=== PATIENT | female | born 1940 | race Two or more races ===

== ENCOUNTER 2018-06-02 20:01 | Emergency (ER) | payer MEDICARE ==
[~2018-06-02] VITALS: Ht 149.9 cm; Wt 43.1 kg
[2018-06-02 20:22] VITALS: BP 123/65
--- NOTE | 2018-06-02 21:45 | NUR ---
CALLED PT'S NAME THREE TIMES, NO RESPONSE, WILL TRY AGAIN AT A LATER TIME
--- NOTE | 2018-06-02 22:06 | NUR ---
CALLED PT'S NAME THREE TIMES, NO RESPONSE, WILL TRY AGAIN AT A LATER TIME
== END 2018-06-02 22:07 | disposition left against medical advice (07) ==
LOC: ER 20:06
DX: Z53.21 Procedure and treatment not carried out due to patient leaving prior to being seen by health care provider (principal)

== ENCOUNTER 2022-05-25 14:18 | Emergency (ER) | payer MEDICARE, OTHER ==
[~2022-05-25] VITALS: Ht 149.9 cm; Wt 44.0 kg
[2022-05-25 15:06] VITALS: BP 164/62
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
--- NOTE | 2022-05-25 16:51 | NUR ---
seen and examined by dr kaminski. verbally discharged.
== END 2022-05-25 16:52 | disposition home or self-care (01) ==
LOC: ER 14:18
DX: M25.561 Pain in right knee (principal)

== ENCOUNTER 2022-06-08 14:01 | Emergency (ER) | payer OTHER ==
[~2022-06-08] VITALS: Ht 149.9 cm; Wt 44.5 kg
[2022-06-08 14:14] VITALS: BP 150/78
--- NOTE | 2022-06-08 14:15 | NUR ---
RECEIVED PT 82 YRS FEMALE CAME FROM HOME FOR UNABLE TO TACKER HERE SELF AND ANXIETY
--- NOTE | 2022-06-08 14:45 | NUR ---
UA SENT TO LAB
--- NOTE | 2022-06-08 15:03 | NUR ---
BLOOD DROW BY LAB TACH
[2022-06-08 15:17] LABS: BASOPHILS # (AUTO) 0.1 K/uL (0.0-0.2); BASOPHILS % (AUTO) 1.2 % (0.0-2.0); EOSINOPHILS % (AUTO) 1.1 % (0.0-6.0); HEMATOCRIT 34 % (33-45); HEMOGLOBIN 11.4 g/dL (11.5-14.8); LYMPHOCYTES # (AUTO) 0.8 K/uL (0.8-4.8); LYMPHOCYTES % (AUTO) 12.9 % (20.0-44.0); MEAN CORPUSCULAR HGB CONC 33 g/dl (31.0-36.0); MEAN CORPUSCULAR VOLUME 86 fL (82-100); MONOCYTES # (AUTO) 0.5 K/uL (0.1-1.30); MONOCYTES % (AUTO) 8.6 % (2.0-12.0); NEUTROPHILS # (AUTO) 4.5 K/uL (1.8-8.9); NEUTROPHILS % (AUTO) 76.2 % (43.0-81.0); PLATELET COUNT (AUTO) 222 K/uL (150-450); RED BLOOD CELL COUNT(AUTO) 4.01 MIL/uL (4.0-5.2); WHITE BLOOD COUNT (AUTO) 5.9 K/uL (4.3-11.0)
[2022-06-08 15:47] LABS: CALCIUM, SERUM 8.7 mg/dL (8.5-10.1); CARBON DIOXIDE 29 mmol/L (21-32); CHLORIDE 104 mmol/L (98-107); CREATININE 0.8 mg/dL (0.6-1.3); GLUCOSE 109 mg/dL (74-106); POTASSIUM 4.1 mmol/L (3.5-5.1); SODIUM SERUM 136 mmol/L (136-145); UREA NITROGEN, BLOOD 18 mg/dL (7-18)
[2022-06-08 15:53] LABS: ALANINE AMINOTRANSFERASE 19 U/L (12-78); ALBUMIN 3.3 g/dL (3.4-5.0); ALCOHOL, BLOOD < 3 mg/dL (0-0); ALKALINE PHOSPHATASE 89 U/L (46-116); ASPARTATE AMINOTRANSFERASE 23 U/L (15-37); BILIRUBIN,DIRECT 0.1 mg/dL (0.0-0.2); BILIRUBIN,TOTAL 0.3 mg/dL (0.2-1.0); TOTAL PROTEIN, SERUM 7.2 g/dL (6.4-8.2)
[2022-06-08 15:54] LABS: ACETAMINOPHEN 0 ug/ml (10-30)
[2022-06-08 17:04] LABS: BILIRUBIN,URINE Negative (NEGATIVE); COLOR,URINE YELLOW (YELLOW); LEUKOCYTE ESTERASE ,URINE Trace (NEGATIVE); NITRITE, URINE Negative (NEGATIVE); PH,URINE 7.5 (5.0-8.0); PROTEIN,URINE Negative (NEGATIVE); UGLUCOSE Negative (NEGATIVE); UROBILINOGEN,URINE 0.2 EU/dL (0.2)
--- NOTE | 2022-06-08 17:17 | NUR ---
TERESA Boo AT BED SIDE FOR PSCHY EVALUATION
--- NOTE | 2022-06-08 18:00 | NUR ---
TERESA DISPATCHER BUS AND TROLLEY BACK AND SAY PLACE PT ON 3598 FOR UNBLE TO TACKER HERE SELF PT WAS NOT IN [place]
--- NOTE | 2022-06-08 18:15 | NUR ---
CAME BACK AT 181 NOT AT 1800
--- NOTE | 2022-06-08 18:15 | NUR ---
Patient eloped from facility. ER MD notified.
--- NOTE | 2022-06-08 18:32 | NUR ---
CALLED [employer] NON EMERGENT LINE AND WAS NOTIFIED TRACTOR TRAILER MOVING VAN DRIVER 550 GAVE PT DESCRIPTION AWAITING FOR OFFICERS TO ARRIVE
[2022-06-08 18:37] LABS: BACTERIA,URINE None seen /HPF (None Seen); RBC,URINE 0-2 /HPF (0-2); WBC,URINE 0-2 /HPF (0-3)
== END 2022-06-08 18:50 | disposition left against medical advice (07) ==
LOC: ER 14:03
DX: F29 Unspecified psychosis not due to a substance or known physiological condition (principal); Z20.822 Contact with and (suspected) exposure to COVID-19
CPT/HCPCS: 99282; 85025; 80048; 80076; 81001; 36415; 87426; 80143; 80320; 80307; C9803; G0480

== ENCOUNTER 2022-06-08 20:00 | Inpatient (IN) | payer OTHER ==
[~2022-06-08] VITALS: Ht 149.9 cm; Wt 27.7 kg
--- NOTE | 2022-06-08 21:15 | NUR ---
[phone] KRIS Son's number
--- NOTE | 2022-06-09 07:35 | NUR ---
BED ASSIGNMENT CHANGED TO 219-A. ADMITTING INFORMED.
--- NOTE | 2022-06-09 07:51 | NUR ---
REPORT GIVEN TO TAMERA RICH
[2022-06-09 08:00] VITALS: BP 159/79
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
--- NOTE | 2022-06-09 08:10 | NUR ---
PATIENT TRANSFERRED TO 219, ALL CARE ENDORSED TO TAMERA RICH
[2022-06-09] MEDS ORDERED: MAG HYDROX/AL HYDROX/SIMETH 30 ML UDC PO PRN (09:00)
[2022-06-09] MEDS ORDERED: MAGNESIUM HYDROXIDE 30 ML UDC PO PRN (09:00)
[2022-06-09] MEDS ORDERED: BLOOD SUGAR DIAGNOSTIC 1 EACH STRIP IN ONE (09:00)
[2022-06-09] MEDS ORDERED: LORAZEPAM 0.5 MG TABLET PO PRN (09:00)
[2022-06-09] MEDS ORDERED: ZOLPIDEM TARTRATE 5 MG TABLET PO PRN (09:00)
[2022-06-09] MEDS ORDERED: ACETAMINOPHEN 325 MG TABLET PO PRN (09:00)
[2022-06-09] MEDS: risperiDONE 0.25 MG TABLET PO SCH ×2 (10:00→17:57)
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
--- NOTE | 2022-06-09 11:43 | NUR ---
BRENNAN Initial Discharge Plan: Patient will return back home [place] at [address], [place] [address]; ([phone]). Patient lives in the same complexas her son Bandar ([phone]) who is involved in patient's care. BRENNAN contacted pt's son Bandar ([phone]) and discussed treatment anddischarge plan. BRENNAN will will coordinate with the pt, family, and MD to help coordinate appropriate discharge. Addendum: 06/12/22 at 0836 by BRENNAN GARRETT felisa Cobos
[2022-06-09 13:35] LABS: THYROID STIMULATING HORMONE 0.707 uIU/mL (0.358-3.74)
[2022-06-09 14:34] VITALS: BP 159/79
--- NOTE | 2022-06-09 14:46 | NUR ---
Social Work Note/Substance Abuse Intervention: Patient was provided with a brief substance abuse intervention and referred to [facility] ([phone]), [facility] ([phone]), and [facility] ([phone]). 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
[2022-06-09 16:00] VITALS: BP 162/75
[2022-06-09 20:15] VITALS: BP 152/91
[2022-06-10 07:28] LABS: ALANINE AMINOTRANSFERASE 17 U/L (12-78); ALBUMIN 3.3 g/dL (3.4-5.0); ALKALINE PHOSPHATASE 90 U/L (46-116); ASPARTATE AMINOTRANSFERASE 20 U/L (15-37); BILIRUBIN,TOTAL 0.3 mg/dL (0.2-1.0); CARBON DIOXIDE 25 mmol/L (21-32); CHLORIDE 104 mmol/L (98-107); CREATININE 0.8 mg/dL (0.6-1.3); GLUCOSE 105 mg/dL (74-106); POTASSIUM 4.5 mmol/L (3.5-5.1); SODIUM SERUM 136 mmol/L (136-145); TOTAL PROTEIN, SERUM 7.1 g/dL (6.4-8.2); UREA NITROGEN, BLOOD 29 mg/dL (7-18)
[2022-06-10 07:31] LABS: CHOLESTEROL 240 mg/dL (<200); HDL CHOLESTEROL 86 mg/dL (40-60); LDL 146 mg/dL (0-99); TRIGLYCERIDES 72 mg/dL (30-150)
[2022-06-10 08:00] VITALS: BP 149/63
[2022-06-10 08:14] LABS: CREATININE 0.8 mg/dL (0.6-1.3)
--- NOTE | 2022-06-10 08:43 | NUR ---
UR NOTE: Auth #[id number] Lizeth OLEARY P:[phone] F:[phone] BRENNAN faxed clinicals and requested auth days.
[2022-06-10] MEDS: risperiDONE 0.25 MG TABLET PO SCH ×2 (08:52→17:26)
[2022-06-10] MEDS: ENSURE ENLIVE 237 ML LIQUID (VANILLA) PO SCH ×2 (12:24→17:26)
--- NOTE | 2022-06-10 13:09 | NUR ---
UR NOTE: Auth #[id number] Lizeth OLEARY P:[phone] F:[phone] SW spoke with Lizeth OLEARY ([phone]) who stated pt is authorized until 06/11, but require clinicals daily to be faxed.
[2022-06-10 16:00] VITALS: BP 135/72
[2022-06-10] MEDS ORDERED: METFORMIN 500 MG TABLET PO SCH (17:00)
[2022-06-10] MEDS: CYANOCOBALAMIN 500 MCG TABLET PO SCH (17:26)
[2022-06-10 20:20] VITALS: BP 148/69
[2022-06-10] MEDS: ATORVASTATIN 10 MG TABLET PO SCH (21:14)
[2022-06-11 08:00] VITALS: BP 154/80
[2022-06-11] MEDS: CYANOCOBALAMIN 500 MCG TABLET PO SCH (08:17)
[2022-06-11] MEDS: risperiDONE 0.25 MG TABLET PO SCH ×2 (08:17→16:30)
[2022-06-11] MEDS: ENSURE ENLIVE 237 ML LIQUID (VANILLA) PO SCH ×3 (08:18→16:31)
[2022-06-11] MEDS ORDERED: LISINOPRIL (10MG) 10 MG TABLET PO SCH (09:00)
[2022-06-11] MEDS: LISINOPRIL (10MG) 10 MG TABLET PO SCH (09:00)
--- NOTE | 2022-06-11 09:07 | NUR ---
RN-NOTES PRINIVIL 20MG P.O NOT GIVEN DUE TO PRINIVIL 10MG P.O WAS GIVEN AT 0818.
--- NOTE | 2022-06-11 10:48 | NUR ---
UR NOTE: Auth #[id number] Lizeth OLEARY P:[phone] F:[phone] BRENNAN spoke with Lizeth OLEARY ([phone]) who stated pt is authorized until 06/11. BRENNAN faxed updated clinicals.
[2022-06-11 16:00] VITALS: BP 136/69
[2022-06-11] MEDS: LINAGLIPTIN 5 MG TABLET PO SCH (16:30)
--- NOTE | 2022-06-11 17:58 | NUR ---
RN-NOTES PATIENT IS VISIBLE IN THE UNIT,GUARDED A/OX3 NOTED WITH DEPRESSED MOOD BUT DENIES SI/HI .ENCOURAGED TO VERBALIZE FEELINGS AND CONCERN TO THE STAFF AND ATTEND GROUPS. PATIENT VERBALIZED UNDERSTANDING ATTENDED GROUP. COMPLIANT WITH MEDICATIONS.AMBULATORY STEADY GAIT. ALL NEEDS ATTENDED AND ANTICIPATED. WILL CONT. MONITORING FOR SAFETY AND BEHAVIOR.WILL ENDORSE TO INCOMING NURSE FOR THE CONTINUITY OF CARE.
--- NOTE | 2022-06-11 18:38 | NUR ---
RN-NOTES PATIENT'S SON ALYCE CAME AND TOOK HOME I BAG OF BIRDS FOOD AND SOME EMPTY BOTTLES HOME.
--- NOTE | 2022-06-11 19:28 | NUR ---
RN NOTES :RECEIVED PATIENT SITTING IN ACTIVITY ROOM WATCHING TV, A/OX2. NO S/SX OF ACUTE DISTRESS NOTED. PATIENT IS ANXIOUS, EASILY AGITATED, PARANOID , HYPERVERBAL GUARDED,NEEDS FREQUENTLY REDIRECTIONS ,ENCOURAGED TO VERBALIZED ANY FEELING OR CONCERN ,SAFETY PRECAUTIONS MAINTAINED. WILL CONTINUE TO MONITOR Q15MIN ROUNDS FOR SAFETY.
[2022-06-11 20:00] VITALS: BP 119/67
[2022-06-11] MEDS: ATORVASTATIN 10 MG TABLET PO SCH (22:02)
[2022-06-12 07:15] LABS: CALCIUM, SERUM 8.5 mg/dL (8.5-10.1); CREATININE 0.7 mg/dL (0.6-1.3); POTASSIUM 4.4 mmol/L (3.5-5.1)
[2022-06-12 08:00] VITALS: BP 150/70
[2022-06-12] MEDS: LISINOPRIL (10MG) 10 MG TABLET PO SCH (08:36)
[2022-06-12] MEDS: CYANOCOBALAMIN 500 MCG TABLET PO SCH (08:36)
[2022-06-12] MEDS: risperiDONE 0.25 MG TABLET PO SCH ×2 (08:36→16:12)
[2022-06-12] MEDS: LINAGLIPTIN 5 MG TABLET PO SCH (08:36)
--- NOTE | 2022-06-12 08:36 | NUR ---
BRENNAN Family Contact: BRENNAN contacted pt's son Papito ([phone]) requesting to speak to this senior underwriter. BRENNAN left a voicemail.
[2022-06-12] MEDS: ENSURE ENLIVE 237 ML LIQUID (VANILLA) PO SCH ×3 (08:37→17:14)
--- NOTE | 2022-06-12 08:42 | NUR ---
BRENNAN Family Contact: BRENNAN contacted pt's son Papito ([phone]) and updated on pt's status.
--- NOTE | 2022-06-12 09:23 | NUR ---
BRENNAN FAMILY CONTACT: BRENNAN CONTACTED PT'S SON VY ([phone]) AND NOTIFIED THAT PT DOES NOT ALLOW SON TO SPEAK TO DOCTOR. HE WAS UNDERSTANDING OF THIS.
--- NOTE | 2022-06-12 09:23 | NUR ---
SW NOTE: DR. WALLACE AND THIS TRANSCRIBING MACHINE MECHANIC ASKED PT IF SHE ALLOWS SON TO SPEAK TO THE DOCTOR AND PT STATED "NO".
--- NOTE | 2022-06-12 10:10 | NUR ---
RN Notes: Received pt. awake in her room, hyperverbal and no distress and no agitation noted. Ate 100% breakfast and compliant on meds. Encouraged to verbalize feelings and motivated to attend group activity. Needs attended and will continue to monitor for safety.
--- NOTE | 2022-06-12 10:55 | NUR ---
UR NOTE: Auth #[id number] Lizeth OLEARY P:[phone] F:[phone] BRENNAN spoke with Lizeth OLEARY ([phone]) who stated pt is authorized until 06/12. BRENNAN faxed updated clinicals. Lizeth stated that during the weekend clinicals are not required.
[2022-06-12 16:00] VITALS: BP 126/66
--- NOTE | 2022-06-12 20:33 | NUR ---
RN OPENING NOTES RECEIVED PATIENT IN BED,AWAKE AND COHERENT. A/O X 3 COOPERATIVE WITH CARE AND TREATMENT. NICE AND POLITE TOWARDS THE STAFF. SHE WANTS TO WEAR HER OUTSIDE CLOTHES INSTEAD OF HOSPITAL GOWN. WITH EPISODES OF PARANOIA NOTED. NO PAIN OR DISCOMFORT AT THIS TIME. NO SOB OR DISTRESS. PATIENT AMBULATES WITH STEADY GAIT. ENCOURAGE TO VERBALIZE CONCERNS AND NEEDS.SAFETY PRECAUTIONS MAINTAINED, KEPT BED ON LOWER LOCKED POSITION. WILL CONTINUE TO MONITOR FOR NANY.
--- NOTE | 2022-06-12 20:49 | NUR ---
GPS RN NOTE, RECEIVED PATIENT AWAKE AND IN BED, NO S/S OR COMPLAINTS OF PAIN AT THIS TIME. PATIENT IS DISPLAYING NO S/S OF APPARENT DISTRESS AT THIS TIME. PATIENT BREATHING IS UNLABORED WITH EQUAL RISE AND FALL OF THE CHEST. PATIENT IS ALERT AND ORIENTED X 3 ON ROOM AIR WITH A SPO2 95%. PATIENT IS COMPLIANT WITH MEDICATIONS, DEMANDING, CONFUSED AT TIMES, MAKES NEEDS KNOWN, AND COOPERATIVE. PATIENT DENIES SUICIDAL AND HOMICIDAL IDEATIONS AT THIS TIME. PATIENT ASSISTED WITH TURNING AND REPOSITIONING Q2HR AND PRN FOR COMFORT AND CIRCULATION. PATIENT HAS NO NEEDS AT THIS TIME. PATIENT EDUCATED ON THE USE OF THE CALL PRUITT. PATIENT BED SIDE RAILS UP X 2 FOR SAFETY. PATIENT BED IS LOCKED, LOW, WITH BED ALARM ON. WILL CONTINUE TO MONITOR THIS PATIENT Q15 MINUTES WITH THE HELP OF STAFF TO MAINTAIN SAFETY.
[2022-06-12 21:04] VITALS: BP 129/65
[2022-06-12] MEDS: ATORVASTATIN 10 MG TABLET PO SCH (21:34)
--- NOTE | 2022-06-12 21:57 | NUR ---
GPS RN NOTE, PATIENT HAS A COMPLAINT OF INDIGESTION AND IS REQUESTING MAALOX AT THIS TIME. PATIENT VITAL SIGNS ARE STABLE. GAVE MAALOX 30ML 1 UNIT DOSE PO Q4HR PRN ORDERED. WILL REASSESS PATIENT AND I WILL CONTINUE TO MONITOR THIS PATIENT WITH THE HELP OF STAFF.
[2022-06-13 08:00] VITALS: BP 133/64
[2022-06-13] MEDS ORDERED: *INSULIN REGULAR(HUMULIN R)HUM 100 UNIT/ML VIAL SQ PRN (08:00)
[2022-06-13] MEDS ORDERED: DEXTROSE 50%-WATER 50 ML DISP.SYRIN IV PRN (08:00)
[2022-06-13] MEDS: ENSURE ENLIVE 237 ML LIQUID (VANILLA) PO SCH ×3 (08:02→17:29)
[2022-06-13] MEDS: LINAGLIPTIN 5 MG TABLET PO SCH (08:03)
[2022-06-13] MEDS: CYANOCOBALAMIN 500 MCG TABLET PO SCH (08:03)
[2022-06-13] MEDS: LISINOPRIL (10MG) 10 MG TABLET PO SCH (08:03)
[2022-06-13] MEDS: risperiDONE 0.25 MG TABLET PO SCH ×2 (08:03→16:27)
--- NOTE | 2022-06-13 09:05 | NUR ---
RN Notes: Received pt. awake in her room and responsive to staffs. Ate 100% breakfast and compliant on meds. Encouraged to verbalize feelings and motivated to attend group activity. Needs attended and will continue to monitor for safety.
[2022-06-13] MEDS: BLOOD SUGAR DIAGNOSTIC 1 EACH STRIP VI SCH ×3 (11:36→21:56)
[2022-06-13 16:00] VITALS: BP 118/60
--- NOTE | 2022-06-13 19:36 | NUR ---
RN NOTES: PATIENT WALKING AROUND THE UNIT ,AWAKE ALERT A/OX2,3. NO S/SX OF ACUTE DISTRESS NOTED , ANXIOUS, EASILY AGITATED,HYPERVERBAL, NEEDY DEMENDANDING , TALIKG TO SELF ,COOPERTIVE AND UNCOOPERTIVE AT A TIMES, PARANOID ,NEEDS FREQUENTLY REDIRECTIONS, ENCOURAGED TO VERBALIZED ANY FEELING OR CONCERN ,SAFETY PRECAUTIONS MAINTAINED. WILL CONTINUE TO MONITOR Q15MIN ROUNDS FOR SAFETY.
[2022-06-13 20:00] VITALS: BP 101/54
[2022-06-13] MEDS: ATORVASTATIN 10 MG TABLET PO SCH (21:01)
--- NOTE | 2022-06-14 07:25 | NUR ---
CELL TUBER MACHINE OPENING NOTE RECEIVED PATIENT A/A/OX3. PATIENT DENIES PAIN, CONVERSING WITHOUT S/S OF ABNORMAL BEHAVIOR NOTED AT PRESENT. PATIENT IS WALKING IN HER ROOM WITHOUT DIFFICULTY, STEADY GAIT NOTED. SAFETY MEASURES IN PLACE. BED LOCK TO THE LOWEST POSITION. TABLE WITHIN REACH. CONT. TO MONITOR.
[2022-06-14 08:00] VITALS: BP 112/64
[2022-06-14] MEDS: BLOOD SUGAR DIAGNOSTIC 1 EACH STRIP VI SCH ×4 (08:00→22:23)
[2022-06-14] MEDS: risperiDONE 0.25 MG TABLET PO SCH ×2 (09:57→17:16)
[2022-06-14] MEDS: LINAGLIPTIN 5 MG TABLET PO SCH (09:57)
[2022-06-14] MEDS: CYANOCOBALAMIN 500 MCG TABLET PO SCH (09:57)
[2022-06-14] MEDS: LISINOPRIL (10MG) 10 MG TABLET PO SCH (09:59)
[2022-06-14] MEDS: ENSURE ENLIVE 237 ML LIQUID (VANILLA) PO SCH ×3 (10:05→17:19)
[2022-06-14] MEDS: INSULIN REGULAR, HUMAN 100 UNIT/ML 3 ML VIAL SQ PRN ×2 (12:23→22:24)
[2022-06-14 16:00] VITALS: BP 126/59
--- NOTE | 2022-06-14 19:00 | NUR ---
ROASTER OPERATOR CLOSING NOTE PATIENT PLEASANT, AMBULATING AT THE HALLWAY, NO S/S OF ABNORMAL BEHAVIOR NOTED. SAFETY MEASURES IN PLACE, BED LOCK TO THE LOWEST POSITION, TABLE WITHIN REACH. I WILL ENDORSE TO THE FOLLOWING NURSE.
[2022-06-14 20:47] VITALS: BP 153/83
[2022-06-14] MEDS: ATORVASTATIN 10 MG TABLET PO SCH (21:46)
[2022-06-15] MEDS: BLOOD SUGAR DIAGNOSTIC 1 EACH STRIP VI SCH ×4 (07:53→21:09)
[2022-06-15 08:00] VITALS: BP 133/57
--- NOTE | 2022-06-15 08:11 | NUR ---
UR NOTE: Auth #[id number] Lizeth OLEARY P:[phone] F:[phone] faxed updated clinicals.
[2022-06-15] MEDS: CYANOCOBALAMIN 500 MCG TABLET PO SCH (08:38)
[2022-06-15] MEDS: risperiDONE 0.25 MG TABLET PO SCH ×2 (08:39→17:18)
[2022-06-15] MEDS: ENSURE ENLIVE 237 ML LIQUID (VANILLA) PO SCH ×3 (08:39→17:18)
[2022-06-15] MEDS: LISINOPRIL (10MG) 10 MG TABLET PO SCH (08:39)
[2022-06-15] MEDS: LINAGLIPTIN 5 MG TABLET PO SCH (08:39)
--- NOTE | 2022-06-15 10:34 | NUR ---
Court Hearing: Patient's court hearing for 3460 was today and it was upheld for GD.
--- NOTE | 2022-06-15 10:34 | NUR ---
Court Notification: Patient's son Papito ([phone]) is aware of pt's 5842 hearing.
--- NOTE | 2022-06-15 14:53 | NUR ---
SW Coordination of Care: Elena case management associate from [place] (P:[phone]) stated that [facility] ([phone]) will reach out pt for telehealth within 7 days. Lizeth stated [facility] ([phone]) will reach out for outpatient appointment days when it has been approved by the insurance.
[2022-06-15 16:00] VITALS: BP 118/61
--- NOTE | 2022-06-15 18:43 | NUR ---
RN- CLOSING NOTES PATIENT AWAKE, SITTING IN THE DINING ROOM WATCHING TV, BREATHING EVEN AND NON LABORED WITH NO S/S OF DISTRESS. PATIENT IS ANXIOUS, GUARDED, AND COOPERATIVE. PATIENT IS MEDICATION COMPLIANT. DENIES SI/HI AT THIS TIME. WILL CONTINUE TO MONITOR Q 15 MINUTES FOR SAFETY AND BEHAVIOR.
[2022-06-15 20:44] VITALS: BP 119/66
[2022-06-15] MEDS: ATORVASTATIN 10 MG TABLET PO SCH (21:04)
[2022-06-16 08:00] VITALS: BP 152/75
[2022-06-16] MEDS: BLOOD SUGAR DIAGNOSTIC 1 EACH STRIP VI SCH ×2 (08:24→12:08)
--- NOTE | 2022-06-16 08:38 | NUR ---
SW Discharge Note: Patient [place] back [place] [address] [place] [address]; ([phone]). Patients son Papito ([phone]) will pickers material handlers pt between 6-7PM. Patient is alert and oriented x3. Patient happy to be going back home. Patient denies suicidal or homicidal ideation. Patient denies visual/auditory hallucinations. Elena caseworker from [place] ([phone]) stated that [facility] ([phone]) will reach out pt for telehealth within 7 days. Lizeth stated [facility] ([phone]) will reach out for outpatient appointment days when it has been approved by the insurance.
[2022-06-16] MEDS: risperiDONE 0.25 MG TABLET PO SCH (09:05)
[2022-06-16] MEDS: CYANOCOBALAMIN 500 MCG TABLET PO SCH (09:05)
[2022-06-16] MEDS: ENSURE ENLIVE 237 ML LIQUID (VANILLA) PO SCH ×2 (09:05→12:08)
[2022-06-16] MEDS: LINAGLIPTIN 5 MG TABLET PO SCH (09:05)
[2022-06-16 09:06] VITALS: BP 152/75
[2022-06-16] MEDS: LISINOPRIL (10MG) 10 MG TABLET PO SCH (09:06)
--- NOTE | 2022-06-16 10:50 | NUR ---
RN- NOTES PSYCHIATRIST DR. WALLACE AND SPACE SYSTEMS OPERATIONS SUPERINTENDENT DR. CUNHA NOTIFIED OF PATIENT DISCHARGE HOME. PSYCHIATRIST ORDER TO DISCONTINUE HOLD AND DISCHARGE HOME. MEDICATIONS RECONCILED.
--- NOTE | 2022-06-16 16:15 | NUR ---
RN- DISCHARGE NOTES PATIENT DISCHARGED HOME IN STABLE CONDITION. COMPLIANT WITH MEDICATIONS, AND COOPERATIVE WITH TREATMENT PLANS. PATIENT DENIES SUICIDAL/HOMICIDAL IDEATIONS AND AUDITORY/VISUAL HALLUCINATIONS. BEHAVIOR IMPROVED, PSYCHIATRIC TREATMENT PLANS MET, MEDICAL TREATMENT PLANS DEFERRED FOR CONTINUAL MONITORING. EDUCATED PATIENT ABOUT AFTER CARE PLAN AND COPY PROVIDED. RETURNED ALL PERSONAL BELONGINGS TO PATIENT. PATIENT IS CALM, COOPERATIVE, WITHOUT DISTRESS. MEDICATIONS RECONCILED WITH PSYCHIATRIST DR. WALLACE AND MED BUNCH BREAKER DR. CUNHA. PATIENT SIGNED ALL DISCHARGE PAPERWORK. SKIN INTACT, NO PICTURES REQUIRED. PAPERWORK, PRESCRIPTIONS, AND INVENTORY COMPLETED WITH PATIENT AND SON. PATIENT LEFT THE UNIT AT 1615 WITH SON, KRIS BENOIT.
== END 2022-06-16 16:15 | disposition home or self-care (01) | DRG 885 ==
LOC: ER 20:03 → GPS 06-09 07:39
PROVIDERS: ADMIT Psychiatry & Neurology Psychiatry; ATTEND Internal Medicine
DX: F29 Unspecified psychosis not due to a substance or known physiological condition (principal); Z20.822 Contact with and (suspected) exposure to COVID-19; F60.0 Paranoid personality disorder; F22 Delusional disorders; E11.9 Type 2 diabetes mellitus without complications; E78.5 Hyperlipidemia, unspecified; I10 Essential (primary) hypertension; Z79.899 Other long term (current) drug therapy; F14.11 Cocaine abuse, in remission
CPT/HCPCS: 36415; 70450-TC; 80048-TC; 80053-TC; 80061-TC; 82565-TC; 82607-TC; 82962-TC; 84443-TC; 87081-TC; J1815